=== PATIENT | male | born 1960 | race Caucasian/White ===

== ENCOUNTER 2017-01-25 15:22 | Inpatient (IN) ==
[2017-01-25] MEDS ORDERED: M.V.I.-12 10 ML, FOLIC ACID 1 MG, MAGNESIUM SULFATE 1 GM, THIAMINE 100 MG in NS 1,000 ML IV ONE (15:47)
[2017-01-25] MEDS ORDERED: ATIVAN IV ONE (15:48)
[2017-01-25 16:08] LABS: MANUAL DIFF NEEDED? NO
[2017-01-25 16:14] LABS: BASO% 0.8 % (0.0-0.8); EOS# 0.24 X1000 (0.0-0.7); EOS% 2.5 % (0.0-10.0); HEMATOCRIT 48.6 % (42.0-52.0); HEMOGLOBIN 17.2 g/dL (14.0-18.0); IMM GRAN# 0.02 X1000 (0.0-0.04); IMM GRAN% 0.2 % (0.0-0.5); LYMPH# 3.99 X1000 (1.2-3.4); LYMPH% 41.6 % (20.5-51.1); MCH 33.3 PG (27-31); MCHC 35.4 g/dL (33-37); MCV 94.2 FL (81-99); MONO# 1.03 X1000 (0.11-0.59); MONO% 10.7 % (1.7-9.3); MPV 10.2 FL (7.4-10.4); NEUT% 44.2 % (42.2-75.2); PLT 432 X1000 (130-400); RBC 5.16 XMIL (4.7-6.1)
[2017-01-25] MEDS ORDERED: HALDOL IV ONE (16:18)
[2017-01-25] MEDS ORDERED: BENADRYL IV ONE (16:19)
[2017-01-25 16:33] LABS: AGAP 18; ALBUMIN 4.6 g/dL (3.5-5.0); ALKALINE PHOSPHATASE 119 U/L (32-122); BUN 4 mg/dL (8-22); CALCIUM 9.4 mg/dL (8.8-10.2); CHLORIDE 99 mmol/L (98-107); COSMO 280; GOT 85 U/L (10-34); GPT 100 U/L (10-44); POTASSIUM 3.5 mmol/L (3.5-5.1); SODIUM 142 mmol/L (136-145); TCO2 25 mmol/L (25-35); TOTAL BILIRUBIN 0.63 mg/dL (0.20-1.00); TOTAL PROTEIN 7.4 g/dL (6.3-8.3)
[2017-01-25 16:52] LABS: FREE T4 1.19 ng/dL (0.93-1.70)
[2017-01-25 17:13] LABS: URINE CULTURE NEEDED? NO; URINE MICRO REVIEW NEEDED? NO; URINE SOURCE CATH
[2017-01-25 17:15] LABS: BILIRUBIN URINE NEGATIVE (NEGATIVE); BLOOD URINE NEGATIVE (NEGATIVE); COLOR STRAW; GLUCOSE URINE NEGATIVE (NEGATIVE); LEUKOCYTES URINE NEGATIVE (NEGATIVE); NITRITE URINE NEGATIVE (NEGATIVE); PROTEIN URINE NEGATIVE (NEGATIVE); SP GRAVITY URINE 1.001; TURBIDITY URINE CLEAR (CLEAR); UR EPITHELIAL CELLS <10 /HPF (<10); URINE BACTERIA NEGATIVE /HPF; URINE RBC <10 /HPF (<10); URINE WBC <10 /HPF (<10); UROBILINOGEN URINE NORMAL (NORMAL)
[2017-01-25 17:25] LABS: UR AMPHETAMINES QUAL NONE DETECTED (NONE DETECT); UR BARBITUATES QUAL NONE DETECTED (NONE DETECT); UR BENZODIAZEPIN QUAL NONE DETECTED (NONE DETECT); UR CANNABINOIDS QUAL NONE DETECTED (NONE DETECT); UR COCAINE QUAL NONE DETECTED (NONE DETECT); UR METHADONE QUAL NONE DETECTED (NONE DETECT); UR OPIATES QUAL NONE DETECTED (NONE DETECT); UR OXYCODONE QUAL NONE DETECTED (NONE DETECT); UR PCP QUAL NONE DETECTED (NONE DETECT)
--- NOTE | 2017-01-25 18:55 | HISTORY AND PHYSICAL ---
HISTORY OF PRESENT ILLNESS: Mr. Encinas is a 56-year-old who presented to the emergency room intoxicated. His girlfriend states that he has been drinking for several days and drinking pretty hard. He does have a history of alcohol use and abuse for several years. He was sober for a couple of years but started drinking again about a year ago. PAST MEDICAL HISTORY: He has had lower back surgery with rex stabilization for lumbosacral degeneration and lower back pain. He has had depression and anxiety for which he has taken Celexa I believe in the past. ALLERGIES: I do not know any drug allergies. FAMILY HISTORY: Positive for brain tumor. There is a history of coronary artery disease I believe and diabetes. REVIEW OF SYSTEMS: Unable to get review of systems. PHYSICAL EXAMINATION: GENERAL: Sleeping, snoring. Sleeping soundly at the present time. VITAL SIGNS: Temperature 98.4 degrees, pulse 84, respirations 27, blood pressure 124/82. O2 saturation 97%. Height is 6 feet. He has nasal cannula. HEENT: Pupils are equal, round. NECK: CVP less than 6 cm. LUNGS: Clear in all lung riggs. CARDIOVASCULAR: Regular rhythm and rate without murmur or S3. ABDOMEN: Soft. SKIN: Warm and dry. LAB: White count 9,600, hematocrit 48, platelet count 432,000. Sodium 142, potassium 3.5, chloride 99, bicarb 25, BUN 4, creatinine 0.7. Liver functions unremarkable. TSH 2.67, T4 1.9. Serum plasma ethanol was 381. Otherwise drug screen was negative for opiates, oxycodone, methadone, barbiturates, phencyclidine, amphetamines, benzodiazepines, urine cocaine, and cannabinoids. Urinalysis unremarkable. ASSESSMENT AND PLAN: Alcoholic intoxication. Will admit him. Give him some IV fluids. We will use IV Ativan for agitation and alcohol withdrawal. Use phenobarbital if necessary. Monitor his electrolytes. We will follow his EKG. Keep him on a monitor. High potential for detox. He was intoxicated and he was shouting things including suicidal ideations but this is in the face intoxication. cc: Main Mendoza MD
[2017-01-25] MEDS ORDERED: PHENOBARBITAL IV PRN (19:52)
[2017-01-25] MEDS ORDERED: ZOFRAN IV PRN (19:52)
[2017-01-25] MEDS ORDERED: ATIVAN ONE (19:55)
[2017-01-25] MEDS: ATIVAN IV PRN ×3 (20:20→22:52)
[2017-01-25] MEDS: NS 1,000 ML IV SCH (22:52)
[2017-01-25] MEDS ORDERED: NS 1,000 ML ONE (23:02)
[2017-01-26] MEDS: ATIVAN IV PRN ×4 (03:09→15:17)
[2017-01-26 05:25] LABS: MANUAL DIFF NEEDED? NO
[2017-01-26 05:48] LABS: BASO% 0.5 % (0.0-0.8); EOS# 0.21 X1000 (0.0-0.7); EOS% 1.9 % (0.0-10.0); HEMATOCRIT 47.9 % (42.0-52.0); HEMOGLOBIN 16.3 g/dL (14.0-18.0); IMM GRAN# 0.02 X1000 (0.0-0.04); IMM GRAN% 0.2 % (0.0-0.5); LYMPH# 2.07 X1000 (1.2-3.4); LYMPH% 18.9 % (20.5-51.1); MCH 32.8 PG (27-31); MCV 96.4 FL (81-99); MONO# 1.03 X1000 (0.11-0.59); MONO% 9.4 % (1.7-9.3); MPV 10.4 FL (7.4-10.4); NEUT% 69.1 % (42.2-75.2); PLT 326 X1000 (130-400); RBC 4.97 XMIL (4.7-6.1)
[2017-01-26 06:01] LABS: AGAP 15; ALKALINE PHOSPHATASE 104 U/L (32-122); BUN 5 mg/dL (8-22); CALCIUM 8.7 mg/dL (8.8-10.2); CHLORIDE 106 mmol/L (98-107); COSMO 284; GOT 76 U/L (10-34); GPT 87 U/L (10-44); SODIUM 145 mmol/L (136-145); TCO2 24 mmol/L (25-35); TOTAL BILIRUBIN 0.91 mg/dL (0.20-1.00); TOTAL PROTEIN 6.3 g/dL (6.3-8.3)
[2017-01-26] MEDS: NS 1,000 ML IV SCH (06:06)
[2017-01-26 06:09] LABS: INR 0.98; PROTIME 10.3 Seconds (9.2-11.7)
--- NOTE | 2017-01-26 06:33 | EKG Report ---
Test Performed on : 01/26/2017 06:12:26 AM Test Reason : chest pain Blood Pressure : / mmHG Vent. Rate : 071 BPM Atrial Rate : 071 BPM P-R Int : 180 ms QRS Dur : 102 ms QT Int : 436 ms P-R-T Axes : 071 081 068 degrees QTc Int : 473 ms Normal sinus rhythm. with sinus arrhythmia. Septal infarct , age undetermined Abnormal ECG No previous ECGs available Confirmed by Ramakrishna ERAZO, Torres Ch ([id number]) on 01/28/2017 12:39:34 PM
[2017-01-26] MEDS ORDERED: NS 1,000 ML IV SCH (07:25)
--- NOTE | 2017-01-26 07:44 | PROGRESS NOTE ---
DATE: 01/26/2017 SUBJECTIVE: Mr. Encinas had a pretty good night. He is awake. Says he is not hurting at this point. Has a mild diffuse tremor in his upper extremities. No visual hallucinations. OBJECTIVE: Vital Signs: Temperature 96.7, pulse 70, respirations 18, blood pressure 126/77. Weight 153 pounds. Urine output 2500 mL. HEENT: Pupils are equal and round. Lungs: Clear in all lung riggs. Cardiovascular: Regular rate without murmur or S3. Abdomen: Soft. Skin: Warm and dry. LABORATORY DATA: Reviewed lab from this morning: White count 10,970, hematocrit 47, platelet count 326,000. Sodium 145, potassium 4.0, chloride 106, bicarbonate 24, BUN 5, creatinine 0.5. Liver functions have come down, AST from 85 to 76, ALT from 187. Pro time was 10.3. Urinalysis drug screen negative except for alcohol which was 381 when he came in yesterday. ASSESSMENT AND PLAN: 1. Alcohol intoxication. 2. Mild alcoholic hepatitis. Doing much better. He is alert and oriented. We will keep him. There is high potential of going through delirium tremens in about 36 hours. Continue IV fluids. He was taking Celexa at home. I will put him back on Celexa. Continue to use Ativan and phenobarbital if necessary for signs of alcohol withdrawal and delirium tremens. He is getting a multivitamin or banana bag with thiamine 100 mg daily. Fluids going at 125 mL q.8 hours, and I can cut those down to 85 mL an hour. cc: Main Mendoza MD
[2017-01-26] MEDS ORDERED: CELEXA PO SCH (09:00)
[2017-01-26] MEDS ORDERED: PRILOSEC PO SCH (09:00)
[2017-01-26 15:47] VITALS: BP 170/77
[2017-01-26] MEDS ORDERED: M.V.I.-12 10 ML, FOLIC ACID 1 MG, MAGNESIUM SULFATE 1 GM, THIAMINE 100 MG in NS 1,000 ML IV SCH (17:00)
--- NOTE | 2017-01-26 17:36 | DISCHARGE SUMMARY ---
ADMISSION DATE: 01/25/2017 DISCHARGE DATE: 01/26/2017 56-year-old, presented to the emergency room, girlfriend dropped him off there. He had been drinking pretty heavy. His alcohol level was 318. He was quite agitated and at the same time, would go into a deep sleep and altered sensorium. No focal neurologic deficits. PAST MEDICAL HISTORY: He has had lower back surgery. He has had a degenerative disk disease in lower back, history of depression. I put him into [facility], get some fluids and Ativan and seemed to wake up and feel much better. I wanted him to stay and try and stay through 72 hours to make sure we avoid delirium tremens but he was pretty insistent on going home on 01/26/2017 so discharged him home. Continue his Celexa. cc: Main Mendoza MD
--- NOTE | 2017-02-12 10:57 | PROVIDER DOCUMENTATION ---
This chart was entered by Saundra Freeman Scribe, acting as scribe for Renny Meza Jr, MD. HPI-Psychological Disorder - General Chief Complaint: Psych Time Seen by Provider: 01/25/17 16:16 Source: patient, other (GIRL FRIEND) Allergies/Adverse Reactions: Patient Allergies Allergy/AdvReac Type Severity Reaction Status Date / Time No Known Allergies Allergy Verified 02/04/17 00:23 Home Medications: Home Medication List Medication Instructions Recorded Confirmed Last Taken Type Unobtainable [Home Meds 01/25/17 01/25/17 Unknown History Unobtainable] - History of Present Illness-Psych Nature of Presenting Problem: 56 y/o WM with a PMHx of alcohol abuse presents to the ER with suicidal ideation and acute alcohol intoxication. reports patient has talked about harming himself and wanting to call the Suicide Hotline for the past 3 days. Onset/Duration: reports: gradual Timing: reports: still present Severity: reports: moderate Situational problems related to:: reports: other (unknown) Psychiatric Complaints: reports: anxiety, suicidal ideation Substance Use: reports: alcohol - Suicidal Ideation Suicide Risk Assessment: male sex, drug or ETOH abuse Clinician's estimation of suicide risk?: low risk Review of Systems - Adult - REVIEW OF SYSTEMS - ADULT Constitutional: reports: no symptoms reported Eyes: reports: no symptoms reported Ears, Nose, Mouth & Throat: reports: no symptoms reported Cardiovascular: reports: no symptoms reported Respiratory: reports: no symptoms reported Gastrointestinal: reports: no symptoms reported Genitourinary: reports: no symptoms reported Musculoskeletal: reports: no symptoms reported Integumentary: reports: no symptoms reported Neurological: reports: no symptoms reported Psychiatric: reports: anxiety, suicidal thoughts Endocrine: reports: no symptoms reported Hematologic/Lymphatic: reports: no symptoms reported Allergic/Immunologic: reports: no symptoms reported Past History - Adult - PAST MEDICAL HISTORY-ADULT Review of Records: reports: Old Records Reviewed, Nursing Assessment Review, Medications Reviewed Major Childhood Illnesses: reports: denies history Cardiovascular: reports: denies history Respiratory: reports: denies history Gastrointestinal: reports: denies history Obstetrical/Gynecological: reports: denies history Genitourinary: reports: denies history Musculoskeletal: reports: denies history Neurological: reports: denies history Endocrine/Immune: reports: denies history Other Conditions: reports: denies history - IMMUNIZATION STATUS Childhood Immunizations: See Nurse Assessment Flu Vaccine: See Nurse Assessment - FAMILY HISTORY Family History: reviewed, not pertinent - SOCIAL HISTORY Alcohol Use Frequency: every day Number of drinks per typical drinking period:: 16-20 drinks Living Situation: family Physical Exam-Psych Focus - Physical Exam-Psych Initial Vital Signs Reviewed: Yes Appearance: alert, anxious, combative, mild distress Neurological: alert, agitated, anxious Behavior/Eye Contact/Speech: belligerent, compulsive. negative: normal speech Thoughts/Hallucinations: paranoid HENMT: negative: pharyngeal erythema, tonsillar exudate Neck: non-tender, full range of motion, supple. negative: C-spine tenderness Respiratory: lungs clear. negative: crackles, rales, rhonchi, stridor, wheezing Cardiovascular: normal peripheral pulses, regular rate, rhythm, no murmur Abdominal Exam: normal bowel sounds, non tender, soft. negative: guarding, rigid, rebound, tenderness Back Exam: negative: normal inspection, no CVA tenderness Extremity: normal range of motion, non-tender. negative: deformity, erythema Integumentary: normal color, normal turgor, warm/dry. negative: rash, swelling , tenderness Progress - PLAN OF CARE/RESULTS Progress/Plan/Lab Results: Orders Category Date Time Status Admit - [facility] Routine AdmDCTranf 01/25/17 19:52 Ordered Activity - Up with Assistance ORDERED Care 01/25/17 19:52 Active Apply Mechanical Device [QM] ORDERED Care 01/25/17 19:52 Active Neurological Check q2h Care 01/25/17 19:52 Active Nursing- Assist w/ IS as order ORDERED Care 01/25/17 19:52 Active Sedation/Agitation Scale Q2H Care 01/25/17 19:52 Active Vital Signs Order Q 4-HR ASSESS Care 01/25/17 19:52 Active Z-Document. for Tele Applied ORDERED Care 01/25/17 19:52 Completed [facility] Routine Cons 01/25/17 19:52 Ordered Regular Diet Diet 01/25/17 18:27 Completed ALCOHOL BLOOD Stat Lab 01/25/17 15:50 Completed CBC WITH DIFF [HEME] Routine Lab 01/26/17 05:00 Completed CBC WITH ELECTRONIC DIFF [HEME] Stat Lab 01/25/17 15:50 Completed CK TOTAL [CHEM] Routine Lab 01/26/17 05:00 Completed COMPREHENSIVE METABOLIC PANEL [CHEM] Routine Lab 01/26/17 05:00 Completed COMPREHENSIVE METABOLIC PANEL [CHEM] Stat Lab 01/25/17 15:50 Completed FREE T4 Stat Lab 01/25/17 15:50 Completed MAGNESIUM [CHEM] Routine Lab 01/26/17 05:00 Completed PROTIME WITH INR [COAG] Routine Lab 01/26/17 05:00 Completed PTT [COAG] Routine Lab 01/26/17 05:00 Completed TROPONIN T Routine Lab 01/26/17 05:00 Completed TSH Stat Lab 01/25/17 15:50 Completed URINALYSIS W/POSS RFLX CULT-1 [URINALYSIS] Stat Lab 01/25/17 16:49 Completed URINE DRUG SCREEN Stat Lab 01/25/17 16:49 Completed VITAMIN B12 Stat Lab 01/25/17 15:50 Completed 0.9% Sodium Chloride Inj [Ns] 1,000 ml Med 01/25/17 19:52 Discontinued IV 125 mls/hr Diphenhydramine [Benadryl] Med 01/25/17 16:19 Discontinued 25 mg IV NOW ONE Haloperidol Lactate [Haldol] Med 01/25/17 16:18 Discontinued 2 mg IV NOW ONE Lorazepam [Ativan] Med 01/25/17 19:52 Discontinued 1 - 2 mg IV Q1H PRN PRN Lorazepam [Ativan] Med 01/25/17 15:48 Discontinued 1 mg IV NOW ONE Mvi [M.v.i.-12] 10 ml Med 01/25/17 15:47 Discontinued Folic Acid 1 mg Magnesium Sulfate 1 gm Thiamine 100 mg 0.9% Sodium Chloride Inj [Ns] 1,000 ml IV NOW Mvi [M.v.i.-12] 10 ml Med 01/26/17 17:00 Discontinued Folic Acid 1 mg Magnesium Sulfate 1 gm Thiamine 100 mg 0.9% Sodium Chloride Inj [Ns] 1,000 ml IV Q24H Omeprazole [Prilosec] Med 01/26/17 09:00 Discontinued 40 mg PO DAILY Ondansetron [Zofran] Med 01/25/17 19:52 Discontinued 4 mg IV Q4H PRN PRN Phenobarbital Med 01/25/17 19:52 Discontinued 130 mg IV Q8H PRN Incentive Spirometer Routine Oth 01/25/17 19:52 Completed Oxygen Device Routine Oth 01/25/17 19:52 Completed Pulse Oximetry Routine Oth 01/25/17 19:52 Completed Telemetry [OM.EQ] Routine Oth 01/25/17 19:52 Active EKG [EKG] Routine Ther 01/26/17 08:00 Completed Transfer/Admit Order [TRANSFER] Routine Transfer 01/25/17 18:25 Completed Result Diagrams: 01/26/17 05:00 01/26/17 05:00 - CONSULTS/PCP/HOSPITALIST Notification #1 *Consult/PCP/Hospitalist*: Dr. Mendoza Time Discussed: 17:41 Consult Disposition: Admit (per [employer]) Departure - Departure Date of Disposition Decision: 01/25/17 Time of Disposition Decision: 17:40 DIAGNOSIS: Acute alcohol intoxication delirium with moderate or severe use disorder, Suicidal ideations Disposition: ADMITTED INPATIENT 09 Certified Medical Emergency: Emergent Condition: Good - Critical Care Note This patient required my direct & personal management of CC.: No This chart was documented by the indicated scribe, (Saundra Freeman Scribe) and accurately reflects the services I performed and decisions made by me, Renny Meza Jr, MD, as attested by the provider's signature.
== END 2017-01-26 17:15 | disposition home or self-care (01) ==
LOC: ED 15:22 → EDIPHOLD 19:54 → 3S 21:55
PROVIDERS: ATTEND Emergency Medicine

== ENCOUNTER 2017-03-06 18:11 | Inpatient (IN) ==
[2017-03-06 18:46] LABS: MANUAL DIFF NEEDED? NO
[2017-03-06 18:49] LABS: BASO% 0.6 % (0.0-0.8); EOS# 0.14 X1000 (0.0-0.7); EOS% 1.6 % (0.0-10.0); HEMATOCRIT 47.3 % (42.0-52.0); HEMOGLOBIN 16.7 g/dL (14.0-18.0); IMM GRAN# 0.02 X1000 (0.0-0.04); IMM GRAN% 0.2 % (0.0-0.5); LYMPH# 2.78 X1000 (1.2-3.4); LYMPH% 31.2 % (20.5-51.1); MCH 32.7 PG (27-31); MCHC 35.3 g/dL (33-37); MCV 92.7 FL (81-99); MONO# 1.12 X1000 (0.11-0.59); MONO% 12.6 % (1.7-9.3); MPV 10.1 FL (7.4-10.4); NEUT% 53.8 % (42.2-75.2); PLT 379 X1000 (130-400)
[2017-03-06] MEDS ORDERED: NS 1,000 ML IV ONE (19:03)
[2017-03-06] MEDS ORDERED: THIAMINE 100 MG in NS 50 ML IV ONE (19:03)
--- NOTE | 2017-03-06 19:06 | PROVIDER DOCUMENTATION ---
HPI-General Adult - General Chief Complaint: Req. Detox Stated Complaint: intoxicated Time Seen by Provider: 03/06/17 18:57 Source: patient Allergies/Adverse Reactions: Patient Allergies Allergy/AdvReac Type Severity Reaction Status Date / Time No Known Allergies Allergy Verified 02/21/17 11:42 - History of Present Illness -Gen Adult Nature of Presenting Problems: Pt comes in intoxicated asking for help with detox. He states he has been drinking heavily for 3 weeks since his left him. He states he would hurt himself but his took all the weapons Review of Systems - Adult - REVIEW OF SYSTEMS - ADULT ROS:: limited per condition Constitutional: reports: no symptoms reported. denies: chills, fever, fatique, night sweats, weight gain Eyes: reports: no symptoms reported. denies: discharge, dry eyes, decreased vision, blurred vision, double vision, eye pain, redness Ears, Nose, Mouth & Throat: reports: no symptoms reported. denies: ear discharge, ear pain, epistaxis, nose pain, loose teeth, mouth/dental pain, hoarseness, throat swelling Cardiovascular: reports: no symptoms reported. denies: chest pain, edema, heart murmur, irregular heart rate, palpitations, poor circulation, syncope Respiratory: reports: no symptoms reported. denies: chronic cough, cough, dyspnea on exertion, excessive sputum production, hemoptysis, shortness of breath, wheezing Gastrointestinal: reports: no symptoms reported. denies: abdominal pain, hematemesis, diarrhea, nausea, rectal bleeding, vomiting Genitourinary: reports: no symptoms reported. denies: dysuria, discharge, flank pain, frequent UTI's, hematuria, hesitency, urinary retention, urgency Musculoskeletal: reports: no symptoms reported. denies: bone pain, back pain, frequent leg cramps, muscle aches, muscle weakness, neck pain Integumentary: reports: no symptoms reported. denies: hives, hair loss, itching , mole changes, nail changes, skin sores/ulcer, skin thickening Neurological: reports: no symptoms reported. denies: ataxia, dizziness/vertigo , headache/migraines, loss of balance, paresthesia, seizure, slurred speech, syncope, tremors Psychiatric: reports: see HPI, anti-depressant use, alcohol/drug dependence, depression. denies: anxiety, emotional problems, insomnia Endocrine: reports: no symptoms reported. denies: change in skin pigment, excessive sweating, cold intolerance, heat intolerance, increased hunger, increased thirst, polyuria Hematologic/Lymphatic: reports: no symptoms reported. denies: blood clots, easy bruising, low blood count, lymphedema, prolonged bleeding, transfusions Allergic/Immunologic: reports: no symptoms reported. denies: allergic reactions , allergic rhinitis, asthma, eczema, food allergy, frequent infections, hay fever, hives, positive PPD, urticaria All Other Systems: Reviewed and Negative Past History - Adult - PAST MEDICAL HISTORY-ADULT Review of Records: reports: Old Records Reviewed, Nursing Assessment Review, Medications Reviewed, Social history reviewed & non-contributory. Major Childhood Illnesses: reports: denies history Cardiovascular: reports: denies history Respiratory: reports: denies history Gastrointestinal: reports: other ("liver problems from drinking") Obstetrical/Gynecological: reports: denies history Genitourinary: reports: denies history Musculoskeletal: reports: denies history Neurological: reports: denies history Psychiatric: reports: depression Endocrine/Immune: reports: denies history Other Conditions: reports: denies history - PRIOR SURGERIES/PROCEDURES Surgical/Procedure History: reports: reviewed, not pertinent - IMMUNIZATION STATUS Childhood Immunizations: See Nurse Assessment Flu Vaccine: See Nurse Assessment - FAMILY HISTORY Family History: reviewed, not pertinent - SOCIAL HISTORY Smoking: greater than 1 pack/day Provider spent 3-5 mins advising pt. on dangers of tobacco.: Discussed manners to quit use, and f/u contacts for add'l counseling. Substance Use: alcohol Number of drinks per typical drinking period:: 5-10 drinks Living Situation: alone Physical Exam-General - PHYSICAL EXAM-ADULT Initial Vital Signs Reviewed: Yes - CONSTITUTIONAL General Appearance: appears well, alert, other (intoxicated) - EYES Eyes: PERRL/EOMI, pink conjunctivae - HEAD, EARS, NOSE, MOUTH & THROAT HENMT: normocephalic/atraumatic, moist mucous membranes, normal ENT inspection - NECK Neck: non-tender, full range of motion - RESPIRATORY Respiratory: chest non-tender, lungs clear, normal breath sounds - CARDIOVASCULAR Cardiovascular: normal peripheral pulses, regular rate, rhythm - GASTROINTESTINAL (ABDOMEN) Abdominal Exam: normal bowel sounds, non tender, soft - LYMPHATIC Lymphatic: no adenopathy - MUSCULOSKELETAL Back Exam: normal inspection, no CVA tenderness Extremity: normal range of motion, non-tender, normal gait - SKIN Integumentary: normal color, normal turgor - NEUROLOGIC Neurologic: aed trainer II-XII nml as tested, grossly normal - PSYCHIATRIC Psych/Mental Status: oriented x 3, other (intoxicated and depressed) Progress - PLAN OF CARE/RESULTS Progress/Plan/Lab Results: Vital Signs - 8 hr 03/06/17 18:14 Temperature 97.9 F Pulse Rate 96 H Respiratory Rate 21 Blood Pressure 163/110 O2 Sat by Pulse Oximetry 100 Laboratory Results - last 24 hr 03/06/17 18:22 WBC 8.90 RBC 5.10 Hgb 16.7 Hct 47.3 MCV 92.7 MCH 32.7 H MCHC 35.3 RDW Std Deviation 13.9 Plt Count 379 MPV 10.1 Immature Gran % (Auto) 0.2 Neut % (Auto) 53.8 Lymph % (Auto) 31.2 [place] % (Auto) 12.6 H Eos % (Auto) 1.6 Baso % (Auto) 0.6 Immature Gran # (Auto) 0.02 Neut # (Auto) 4.79 Lymph # (Auto) 2.78 [place] # (Auto) 1.12 H Eos # (Auto) 0.14 Baso # (Auto) 0.05 Orders Category Date Time Status Saline Loc DIRECTED Care 03/06/17 18:22 Active ACETAMINOPHEN [TDM] Stat Lab 03/06/17 18:22 Received ALCOHOL BLOOD Stat Lab 03/06/17 18:22 Received CBC WITH ELECTRONIC DIFF [HEME] Stat Lab 03/06/17 18:22 Completed COMPREHENSIVE METABOLIC PANEL [CHEM] Stat Lab 03/06/17 18:22 Received MAGNESIUM [CHEM] Stat Lab 03/06/17 18:22 Received SALICYLATES [TDM] Stat Lab 03/06/17 18:[address] DRUG S[address]EN [address] Stat Lab 03/06/17 18:22 Uncollected Pulse Oximetry Stat Oth 03/06/17 18:22 Active Result Diagrams: 03/08/17 04:34 03/08/17 04:34 - CONSULTS/PCP/HOSPITALIST Notification #1 *Consult/PCP/Hospitalist*: leahy Time Discussed: 20:00 Consult Disposition: Admit Departure - Departure Date of Disposition Decision: 03/05/17 Time of Disposition Decision: 20:00 DIAGNOSIS: Suicidal ideations, Alcohol abuse Disposition: ADMITTED INPATIENT 09 Certified Medical Emergency: Emergent Condition: Good - Critical Care Note This patient required my direct & personal management of CC.: Yes Total Time (mins): 30 Critical Care Statement: This patient required my direct personal management to treat or rule out processes, the absence of which, could potentiallly result in sudden, clinically significant life or limb threatening deterioration. Attestation - Physician/ WES Attestation Patient care was provided by Advanced Practice Provider:: Yes Advanced Practice Provider:: Lori Machado (physician on site and avalible for consult but did not see this patient ) Advanced Practice Provider documentation review:: The Mid-level provider documentation, treatment plan and medical decision making was reviewed by the physician who agrees with all treatment and medical decision making by the MLP.
[2017-03-06 19:12] LABS: AGAP 15; ALBUMIN 4.6 g/dL (3.5-5.0); ALKALINE PHOSPHATASE 144 U/L (32-122); BUN 3 mg/dL (8-22); CALCIUM 9.3 mg/dL (8.8-10.2); CHLORIDE 100 mmol/L (98-107); COSMO 274; GOT 102 U/L (10-34); GPT 84 U/L (10-44); MAGNESIUM 1.9 mg/dL (1.5-2.7); SODIUM 139 mmol/L (136-145); TCO2 25 mmol/L (25-35); TOTAL PROTEIN 7.4 g/dL (6.3-8.3)
[2017-03-06 19:15] LABS: ACETAMINOPHEN < 1.2 ug/mL (10-30)
[2017-03-06] MEDS ORDERED: ATIVAN IV ONE (19:52)
[2017-03-06] MEDS ORDERED: SODIUM CHLORIDE 0.9% INJ SCH (21:22)
[2017-03-06] MEDS ORDERED: ZOFRAN IV PRN (21:22)
[2017-03-06] MEDS: PHENOBARBITAL IV PRN (21:50)
[2017-03-06] MEDS: NS 1,000 ML IV SCH (21:50)
[2017-03-06] MEDS: PROTONIX IV SCH (21:50)
--- NOTE | 2017-03-06 22:05 | HISTORY AND PHYSICAL ---
SUBJECTIVE: This is a 56-year-old who was admitted on 03/06/2017. He was picked up at his home, he had been drinking, alcohol level above 300. Very despondent with some suicide ideation. Quit drinking for some time. At least a pint a day. He has had a long history of alcohol abuse. Was sober for couple years. Recently events in his life have been very stressful. He has been evicted from his home and his marriage is falling apart and admitting him for acute alcohol intoxication and profound depression. PAST MEDICAL HISTORY: 1. He had lower back pain, he had rex stabilization for lumbosacral degenerative lower back. 2. Depression, anxiety. He has been on some Celexa. ALLERGIES: No known drug allergies. FAMILY HISTORY: Positive for brain tumor one his brothers, history of coronary artery disease, his father was alcoholic, history of diabetes. SOCIAL HISTORY: He smokes a pack to 2 packs a day, drinks over a pint of whiskey pretty much daily. REVIEW OF SYSTEMS: Constitutional: Unable to elicit but he has had any weight gain or loss. No fever or chills. HEENT: Unremarkable. Respiratory: No reports of trouble with respiratory difficulty. Cardiovascular: No chest pain reported. Endocrinologic/ Hematologic/neurologic: No real changes. EXAM: Vital signs: He is afebrile sleeping at the present time, temperature 97.9 degrees, pulse 96, respiration 20, blood pressure 163/110. Pupils: Equal, round. Lungs: Clear in all lung riggs. Cardiovascular: Regular rhythm, rate without murmur, S3. Abdomen: Soft. Skin: Warm and dry. Height 5 feet 11 inches. I do not appreciate any abdominal tenderness. LAB: White blood cell count 8900, hematocrit 47, platelet count 379,000. Sodium 139, potassium 3.0, chloride 100, bicarb 25, BUN 3, creatinine 0.6, blood sugar 95, AST 102, ALT 84, alkaline phosphatase 144, magnesium 1.9, albumin 4.6. Salicylate less than 3, acetaminophen 1.2, plasma ethanol level 325. HOME MEDICATION: He was taking some Pepcid and apparently had some [place] he is taking and some Toradol and Effexor 50 mg q.a.m. ASSESSMENT AND PLAN: 1. Acute alcohol intoxication. Suspect he will go through some withdrawals, possible delirium tremens. Moved to the ICU, will use Ativan 1-2 mg IV every hour, he can use phenobarbital as well, give him some IV fluids., Watch his liver enzymes, will restart his Effexor when able and see if we can pursue alcohol rehab. 2. Depression. 3. Lower back arthritis, rex placement for stabilization about 2 years ago. cc: Main Mendoza MD
[2017-03-06] MEDS: ATIVAN IV PRN (23:59)
[2017-03-07] MEDS: PHENOBARBITAL IV PRN ×3 (01:48→20:52)
[2017-03-07] MEDS: ATIVAN IV PRN ×5 (02:00→20:25)
[2017-03-07 04:37] LABS: BILIRUBIN URINE NEGATIVE (NEGATIVE); BLOOD URINE NEGATIVE (NEGATIVE); CLARITY CLEAR (CLEAR); COLOR YELLOW; GLUCOSE URINE NEGATIVE (NEGATIVE); LEUKOCYTES URINE TRACE (NEGATIVE); NITRITE URINE NEGATIVE (NEGATIVE); PROTEIN URINE TRACE mg/dL (NEGATIVE); SP GRAVITY URINE 1.015; URINE SOURCE CATH; UROBILINOGEN URINE 1+(1 mg/dL)
[2017-03-07 04:40] LABS: UR AMPHETAMINES QUAL NONE DETECTED (NONE DETECT); UR BARBITUATES QUAL NONE DETECTED (NONE DETECT); UR BENZODIAZEPIN QUAL NONE DETECTED (NONE DETECT); UR CANNABINOIDS QUAL NONE DETECTED (NONE DETECT); UR COCAINE QUAL NONE DETECTED (NONE DETECT); UR MDMA QUAL NONE DETECTED (NONE DETECT); UR METHADONE QUAL NONE DETECTED (NONE DETECT); UR METHAMPHETAMINE QUAL NONE DETECTED (NONE DETECT); UR OPIATES QUAL NONE DETECTED (NONE DETECT); UR OXYCODONE QUAL NONE DETECTED (NONE DETECT); UR PCP QUAL NONE DETECTED (NONE DETECT); UR TCA QUAL NONE DETECTED (NONE DETECT)
[2017-03-07 05:25] LABS: URINE CULTURE PL NEEDED? YES; URINE EPITHELIAL CELLS <10 /HPF (<10); URINE RBC <10 /HPF (<10); URINE WBC <10 /HPF (<10)
[2017-03-07] MEDS: NS 1,000 ML IV SCH (05:45)
[2017-03-07 05:47] LABS: MANUAL DIFF NEEDED? NO
[2017-03-07 05:51] LABS: BASO% 0.7 % (0.0-0.8); EOS# 0.12 X1000 (0.0-0.7); HEMATOCRIT 44.2 % (42.0-52.0); HEMOGLOBIN 15.3 g/dL (14.0-18.0); IMM GRAN# 0.01 X1000 (0.0-0.04); IMM GRAN% 0.2 % (0.0-0.5); LYMPH# 1.19 X1000 (1.2-3.4); LYMPH% 20.2 % (20.5-51.1); MCH 33.1 PG (27-31); MCHC 34.6 g/dL (33-37); MCV 95.7 FL (81-99); MONO# 0.67 X1000 (0.11-0.59); MONO% 11.4 % (1.7-9.3); MPV 9.9 FL (7.4-10.4); NEUT% 65.5 % (42.2-75.2); PLT 282 X1000 (130-400); RBC 4.62 XMIL (4.7-6.1)
[2017-03-07 06:23] LABS: AGAP 13; BUN 4 mg/dL (8-22); CALCIUM 8.3 mg/dL (8.8-10.2); CHLORIDE 106 mmol/L (98-107); COSMO 279; POTASSIUM 3.1 mmol/L (3.5-5.1); SODIUM 142 mmol/L (136-145); TCO2 24 mmol/L (25-35)
[2017-03-07] MEDS: NS + KCL 40 MEQ 1,000 ML IV SCH ×2 (09:43→19:21)
--- NOTE | 2017-03-07 11:42 | PROGRESS NOTE ---
DATE: 03/07/2017 SUBJECTIVE: Mr. Encinas had a pretty uneventful night. He did wake up with some agitation and confusion. He required a Elizabeth catheter. Unable to void. He appears comfortable this morning. Sleeping and breathing comfortably. He remains afebrile. PHYSICAL EXAMINATION: Vital Signs: Temperature 97 degrees, pulse 70, respirations 20, blood pressure 110/69. HEENT: Pupils are equal and round. CVP less than 6 cm. Lungs: Clear in all lung riggs. Cardiovascular Examination: Regular rhythm and rate without murmur or S3. Abdomen: Soft. Skin: Is warm and dry. Is and Os: Urine output over 800 mL. LABORATORY DATA: White count 5880, hematocrit 44, platelet count 282,000. Sodium 142, potassium 3.1, chloride 106, bicarb 24, BUN 4, creatinine 0.5. Magnesium yesterday was 1.9. ASSESSMENT AND PLAN: 1. Alcohol intoxication with alcoholic hepatitis. We will check a hepatitis profile. Continue to use the Ativan and phenobarbital. Alcohol level was 300 yesterday. He has a Elizabeth catheter in place. Social service is looking to try and see what we can do for discharge for rehab. 2. Depression. 3. Lower back arthritis with surgical rods placed. We will start on banana bag every day on him with some thiamine. I will supplemental a little bit of his potassium. cc: Main Mendoza MD
[2017-03-07] MEDS ORDERED: M.V.I.-12 10 ML, FOLIC ACID 1 MG, MAGNESIUM SULFATE 1 GM, THIAMINE 100 MG in NS 1,000 ML IV SCH (12:00)
[2017-03-07] MEDS: M.V.I.-12 10 ML, FOLIC ACID 1 MG, MAGNESIUM SULFATE 1 GM, THIAMINE 100 MG in NS 1,000 ML IV SCH (18:44)
[2017-03-07] MEDS ORDERED: NICODERM PATCH ONE (18:46)
[2017-03-07] MEDS: NICODERM PATCH TD SCH (18:48)
[2017-03-07] MEDS: PROTONIX IV SCH (20:25)
[2017-03-08] MEDS: NS + KCL 40 MEQ 1,000 ML IV SCH ×3 (05:03→23:34)
[2017-03-08 06:15] LABS: MANUAL DIFF NEEDED? NO
[2017-03-08 06:26] LABS: BASO% 0.6 % (0.0-0.8); EOS# 0.14 X1000 (0.0-0.7); EOS% 2.7 % (0.0-10.0); HEMATOCRIT 40.5 % (42.0-52.0); HEMOGLOBIN 13.5 g/dL (14.0-18.0); IMM GRAN# 0.01 X1000 (0.0-0.04); IMM GRAN% 0.2 % (0.0-0.5); LYMPH# 1.09 X1000 (1.2-3.4); LYMPH% 20.7 % (20.5-51.1); MCH 32.3 PG (27-31); MCHC 33.3 g/dL (33-37); MCV 96.9 FL (81-99); MONO# 0.68 X1000 (0.11-0.59); MONO% 12.9 % (1.7-9.3); MPV 10.4 FL (7.4-10.4); NEUT% 62.9 % (42.2-75.2); PLT 242 X1000 (130-400); RBC 4.18 XMIL (4.7-6.1)
[2017-03-08 06:41] LABS: AGAP 7; ALBUMIN 3.2 g/dL (3.5-5.0); ALKALINE PHOSPHATASE 108 U/L (32-122); BUN 7 mg/dL (8-22); CALCIUM 8.1 mg/dL (8.8-10.2); CHLORIDE 102 mmol/L (98-107); COSMO 266; GOT 52 U/L (10-34); GPT 53 U/L (10-44); MAGNESIUM 1.9 mg/dL (1.5-2.7); POTASSIUM 3.5 mmol/L (3.5-5.1); SODIUM 134 mmol/L (136-145); TCO2 25 mmol/L (25-35); TOTAL PROTEIN 5.3 g/dL (6.3-8.3)
[2017-03-08] MEDS: ATIVAN IV PRN ×3 (07:51→15:18)
[2017-03-08] MEDS: CELEXA PO SCH (11:01)
[2017-03-08] MEDS: NICODERM PATCH TD SCH (11:01)
[2017-03-08] MEDS: PHENOBARBITAL IV PRN ×2 (11:13→19:40)
--- NOTE | 2017-03-08 11:44 | PROGRESS NOTE ---
DATE: 03/08/2017 He is awake. He is very tearful. He has had some visual hallucinations. He is not having any more. Temp 97.7 degrees, respirations 17, blood pressure 144/83.HEENT: Pupils were equal round. CVP less than 6 cm. Lungs: Clear in all lung riggs. Cardiovascular: Regular rhythm and rate without murmur or S3. Abdomen: Soft. Skin: Is warm and dry. Urine output is 3.7 L. LAB: White count 5260, hematocrit 40, platelet count 242,000. Sodium 134, potassium 3.5, chloride 102, bicarb 25, BUN 7, creatinine 0.5, total bilirubin was 2.2. AST was down at 52 and ALT is 53. Alkaline phosphatase was 108. ASSESSMENT AND PLAN: 1. Alcohol intoxication and alcohol withdrawal. Early delirium toxicosis. He has some visual hallucinations. Continue Ativan as needed. We will put him back on the Celexa. 2. Profound depression. Back on Celexa. 3. Lower back rex placement, degenerative arthritis. 4. Encouraged him to eat. I think he is eating pretty good and make plans for his rehab on discharge. His liver enzymes are coming down nicely. cc: Main Mendoza MD
[2017-03-08] MEDS: M.V.I.-12 10 ML, FOLIC ACID 1 MG, MAGNESIUM SULFATE 1 GM, THIAMINE 100 MG in NS 1,000 ML IV SCH (17:16)
[2017-03-08] MEDS: PROTONIX IV SCH (20:23)
[2017-03-08] MEDS ORDERED: BLISTEX MEDICATED BERRY LIP BALM TOP PRN (21:19)
[2017-03-09] MEDS: PHENOBARBITAL IV PRN (02:51)
[2017-03-09] MEDS: ATIVAN IV PRN ×5 (04:45→21:07)
[2017-03-09] MEDS: CELEXA PO SCH (09:02)
[2017-03-09] MEDS: NICODERM PATCH TD SCH (09:02)
--- NOTE | 2017-03-09 09:49 | PROGRESS NOTE ---
DATE: 03/09/2017 SUBJECTIVE: He had a pretty good night. His tummy has a little bit of gnawing feeling. Otherwise, he is comfortable. No visual hallucinations. OBJECTIVE: Vital Signs: Temperature 97.6 degrees, pulse 52, respirations 20, blood pressure 154/73. HEENT: Pupils are equal, round. Lungs: Clear in all lung riggs. Cardiovascular: Regular rhythm and rate without murmur or S3. Abdomen: Soft. Skin is warm and dry. Urine Output: Well over 7 liters. ASSESSMENT AND PLAN: 1. Alcohol withdrawals, alcohol toxicity, and alcoholic hepatitis are improving. I think we are coming through some mild delirium tremens. I think he can move to the floor. 2. Profound depression, back on Celexa. 3. 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 Working on placement options for him. 4. We will check some more labs in the morning, recheck his liver enzymes and electrolytes. cc: Main Mendoza MD
[2017-03-09] MEDS: NS + KCL 40 MEQ 1,000 ML IV SCH ×2 (10:22→20:17)
[2017-03-09 12:15] LABS: HEPATITIS PROFILE ACUTE SEE COMMENTS
[2017-03-09] MEDS: M.V.I.-12 10 ML, FOLIC ACID 1 MG, MAGNESIUM SULFATE 1 GM, THIAMINE 100 MG in NS 1,000 ML IV SCH (18:34)
[2017-03-09] MEDS: PROTONIX IV SCH (21:07)
[2017-03-10] MEDS: NS + KCL 40 MEQ 1,000 ML IV SCH ×2 (06:31→15:32)
[2017-03-10 06:38] LABS: AGAP 8; ALBUMIN 3.3 g/dL (3.5-5.0); ALKALINE PHOSPHATASE 112 U/L (32-122); BUN 4 mg/dL (8-22); CALCIUM 8.5 mg/dL (8.8-10.2); CHLORIDE 102 mmol/L (98-107); COSMO 265; GOT 49 U/L (10-34); GPT 51 U/L (10-44); POTASSIUM 4.1 mmol/L (3.5-5.1); SODIUM 134 mmol/L (136-145); TCO2 25 mmol/L (25-35); TOTAL PROTEIN 5.7 g/dL (6.3-8.3)
[2017-03-10] MEDS ORDERED: ATIVAN PO PRN (08:33)
[2017-03-10] MEDS: CELEXA PO SCH (08:57)
[2017-03-10] MEDS: NICODERM PATCH TD SCH (08:57)
[2017-03-10] MEDS: ATIVAN IV PRN (08:58)
--- NOTE | 2017-03-10 10:39 | PROGRESS NOTE ---
DATE: 03/10/2017 SUBJECTIVE: He is pretty tearful. He did get some rest. He does stay pretty anxious. OBJECTIVE: Vital Signs: Afebrile and temp 98.5 degrees, pulse 65, respirations 18, blood pressure 145/74. Eyes: Pupils are equal and round. Lungs: Clear in all lung riggs. Cardiovascular exam: Regular rhythm and rate without murmur or S3. Abdomen: Soft. Skin: Warm and dry. : Urine output over 4 L. LAB REVIEWED: Liver enzymes have come down. Total bilirubin 1.4. AST came from 102 to 49, ALT 51, so they are improving. Urine output is good. ASSESSMENT AND PLAN: 1. Alcohol withdrawal, alcohol hepatitis, delirium tremens. Continues to have a good deal of anxiety. 2. Profound depression back on Celexa. 3. 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 He is eating and so nutrition is improved. I think he will probably need another 48 hours. Continue present orders. I am going to put him on scheduled Ativan at this point 1 mg p.o. q. 4 hours. cc: Main Mendoza MD
[2017-03-10] MEDS: ATIVAN PO SCH ×2 (15:31→22:03)
[2017-03-10] MEDS ORDERED: IMODIUM PO PRN (17:54)
[2017-03-10] MEDS: M.V.I.-12 10 ML, FOLIC ACID 1 MG, MAGNESIUM SULFATE 1 GM, THIAMINE 100 MG in NS 1,000 ML IV SCH (18:30)
[2017-03-10] MEDS: PHENOBARBITAL IV PRN (19:47)
[2017-03-10] MEDS: ATIVAN PO PRN (19:47)
[2017-03-10] MEDS: PRILOSEC PO SCH (21:04)
[2017-03-11] MEDS: ATIVAN PO SCH ×4 (04:03→20:37)
[2017-03-11 06:46] LABS: AGAP 7; ALBUMIN 3.3 g/dL (3.5-5.0); ALKALINE PHOSPHATASE 110 U/L (32-122); BUN 4 mg/dL (8-22); CHLORIDE 103 mmol/L (98-107); COSMO 270; GOT 48 U/L (10-34); GPT 54 U/L (10-44); POTASSIUM 4.3 mmol/L (3.5-5.1); SODIUM 137 mmol/L (136-145); TCO2 27 mmol/L (25-35); TOTAL PROTEIN 5.7 g/dL (6.3-8.3)
[2017-03-11] MEDS: NICODERM PATCH TD SCH (08:58)
[2017-03-11] MEDS: CELEXA PO SCH (08:58)
[2017-03-11] MEDS: NS + KCL 40 MEQ 1,000 ML IV SCH (12:08)
[2017-03-11] MEDS: M.V.I.-12 10 ML, FOLIC ACID 1 MG, MAGNESIUM SULFATE 1 GM, THIAMINE 100 MG in NS 1,000 ML IV SCH (17:46)
[2017-03-11] MEDS: PHENOBARBITAL IV PRN (20:37)
[2017-03-11] MEDS: PRILOSEC PO SCH (20:37)
[2017-03-12] MEDS: ATIVAN PO SCH ×4 (03:56→20:19)
[2017-03-12] MEDS: CELEXA PO SCH (08:07)
[2017-03-12] MEDS: NICODERM PATCH TD SCH (08:07)
[2017-03-12] MEDS ORDERED: TYLENOL PO PRN (16:39)
[2017-03-12] MEDS: ATIVAN PO PRN (16:50)
--- NOTE | 2017-03-12 18:52 | PROGRESS NOTE ---
DATE: 03/12/2017 SUBJECTIVE: I do not see the progress note from 03/11. Romeo feeling much better. Wanted to get his clothes, wanted to see if he can get shower, he is eating much better and still has high- level anxiety. PHYSICAL EXAMINATION: Vital signs: Temperature 98 degrees, pulse 60, respirations 18, blood pressure 140/77, O2 saturation was 100%. Lungs: Clear in all lung riggs. Cardiovascular: Regular rhythm, rate without murmur, S3. Abdomen: Soft. Skin: Warm and dry. Urine output was over 5 L. LAB: Reviewed from the , . Liver enzymes are coming down although slowly. Bilirubin down 1.0, AST 48, ALT . ASSESSMENT/PLAN: 1. Alcohol withdrawal. 2. Alcohol hepatitis. 3. Delirium tremens improving. 4. Liver enzymes improving, improving his p.o. intake. Looking for placement. He needs to go some place where he can go to rehab, he has no place to go home, is evicted from his house. cc: Main Mendoza MD
--- NOTE | 2017-03-12 18:56 | PROGRESS NOTE ---
DATE: 03/12/2017 SUBJECTIVE: He is feeling better. He does have a little bit of a headache. Still some tremors. Still pretty anxious but he is eating better. OBJECTIVE: Vital signs: Temp 98 degrees, pulse 76, respirations 18, blood pressure 131/69. Lungs: Clear in all lung riggs. Cardiovascular: Regular rhythm and rate without murmur or S3. Abdomen: Soft. Skin: Warm and dry. LAB: Reviewed. We will check some liver enzymes again in the morning. ASSESSMENT AND PLAN: Alcohol withdrawal and delirium tremens, improving. Looking for placement. cc: Main Mendoza MD
[2017-03-12] MEDS: PHENOBARBITAL IV PRN (20:19)
[2017-03-12] MEDS: PRILOSEC PO SCH (20:19)
[2017-03-13] MEDS: ATIVAN PO SCH ×4 (03:29→20:17)
[2017-03-13 07:10] LABS: AGAP 9; ALBUMIN 3.7 g/dL (3.5-5.0); ALKALINE PHOSPHATASE 103 U/L (32-122); BUN 9 mg/dL (8-22); CALCIUM 9.5 mg/dL (8.8-10.2); CHLORIDE 98 mmol/L (98-107); COSMO 265; GOT 32 U/L (10-34); GPT 49 U/L (10-44); POTASSIUM 3.8 mmol/L (3.5-5.1); SODIUM 133 mmol/L (136-145); TCO2 27 mmol/L (25-35); TOTAL PROTEIN 6.2 g/dL (6.3-8.3)
[2017-03-13] MEDS: NICODERM PATCH TD SCH (08:15)
[2017-03-13] MEDS: CELEXA PO SCH (08:15)
[2017-03-13 11:58] LABS: HEPATITIS PROFILE ACUTE SEE COMMENTS
[2017-03-13] MEDS: PHENOBARBITAL IV PRN (20:17)
[2017-03-13] MEDS: PRILOSEC PO SCH (20:49)
[2017-03-14] MEDS: ATIVAN PO SCH ×2 (03:26→08:13)
[2017-03-14 04:41] VITALS: BP 109/67
--- NOTE | 2017-03-14 07:42 | DISCHARGE SUMMARY ---
ADMISSION DATE: 03/06/2017 DISCHARGE DATE: 03/14/2017 HISTORY OF PRESENT ILLNESS: This is a 56-year-old who was brought in on 03/06/2017. He was picked up at his home, had been drinking. Alcohol level was above 300. Very despondent, some suicidal ideation. He had quit drinking for some time, almost 3 years, but then started back really about a year ago and drinking recently at least a pint a day. He was brought in by the police, very despondent, and admitted for alcohol intoxication. PAST MEDICAL HISTORY: 1. Lower back pain. He has had some lumbosacral stabilization with rods. 2. Depression and anxiety. ALLERGIES: No known drug allergies. FAMILY HISTORY: Positive for brain tumor in one of his brothers, history of coronary artery disease in his mother. His father was an alcoholic, history of diabetes. SOCIAL HISTORY: He smokes about 2 packs a day. Drinks over a pint of whiskey pretty much daily. REVIEW OF SYSTEMS: General: No weight gain or loss but he has not been eating very well in the last several weeks. HEENT: He has dentures. Respiratory: No increased work of breathing or dyspnea. Cardiovascular: No chest pain or tachy palpitations. GI and : Unremarkable. HOSPITAL COURSE: Patient was admitted, alcohol intoxication. He was going through withdrawals, having some visual hallucinations and this intensified after 72 hours and went into delirium tremens. He required Ativan, benzodiazepine, and we gave him phenobarbital which seemed to help. Very anxious, difficulty getting to sleep, was not hungry. This improved. Appetite improved. His tremors diminished. Liver enzymes were elevated, consistent with hepatic or alcoholic hepatitis. On presentation, bilirubin was 2.2. His AST was 52, ALT 53. Bilirubin came down at 0.6. AST 32, ALT 49, alkaline phosphatase was only 108. Electrolytes look good. Renal function was good. [place] he was ready for discharge on 03/14/2017. DISCHARGE MEDICATIONS: The patient received a little bit of Imodium for diarrhea. We will stop that. We will stop the Ativan. NicoDerm patch if he wants one. He will stay on his Celexa 40 mg daily. cc: Main Mendoza MD
[2017-03-14] MEDS: CELEXA PO SCH (08:13)
== END 2017-03-14 08:25 | disposition home or self-care (01) ==
LOC: SUPCPDRO → P.ED 18:11 → P.ICU 20:29 → P.MEDSURG 03-09 08:56
PROVIDERS: ADMIT Emergency Medicine; ATTEND Emergency Medicine